=== PATIENT | female | born 1935 | race Two or more races ===

== ENCOUNTER → 2016-05-25 | Outpatient (CLI) | payer MEDICARE, OTHER ==
--- NOTE | 2016-05-25 08:57 | RAD ---
Examination: Ultrasound pelvis History: History of abdominal pain, pelvic pain, history of complete hysterectomy Comparison: None available. Technique: Transabdominal, transvaginal ultrasound of the pelvis Findings: The uterus, ovaries are not identified. Patient had a reported history of complete hysterectomy. No significant free fluid identified in the cul-de-sac. Impression: The uterus, ovaries are not identified. Patient had a reported history of complete hysterectomy. Unremarkable visualized exam.
--- NOTE | 2016-05-25 09:00 | RAD ---
Examination: Ultrasound abdomen complete History: History of abdominal pain Comparison: None available Findings: The pancreas is obscured by bowel gas. The visualized aorta, IVC appear patent. The echogenicity of the liver grossly appears unremarkable. The liver measures 16.1 cm. No evidence of gallstones identified within the gallbladder. The common bile duct measures 5.1 mm in transverse dimension. The right kidney measures 10.6 x 4.7 x 4.0 cm. The left kidney measures 10.2 x 4.7 x 5.0 cm. The spleen measures 8 cm in length. Impression: Unremarkable visualized exam.
== END | disposition home or self-care (01) ==
LOC: US 07:08
PROVIDERS: ATTEND Family Medicine
DX: R10.9 Unspecified abdominal pain (principal); Z90.710 Acquired absence of both cervix and uterus
CPT/HCPCS: 76700; 76856

== ENCOUNTER 2017-12-11 13:32 | Emergency (ER) | payer MEDICARE, OTHER ==
[~2017-12-11] VITALS: Ht 152.4 cm; Wt 52.2 kg
[2017-12-11] MEDS ORDERED: IV NORMAL SALINE 500ML BAG 500 ML IV ONE (13:45)
[2017-12-11] MEDS ORDERED: IV NORMAL SALINE 1000ML BAG 1,000 ML IV ONE (13:45)
[2017-12-11 14:05] LABS: BASO # 0.1 x10^3/uL (0.0-0.2); BASO % 1 % (0-3); EOS # 0.2 x10^3/uL (0.0-0.7); EOS % 2 % (0-3); HEMATOCRIT 35.3 % (36.0-47.0); HEMOGLOBIN 11.8 g/dL (12.0-15.5); LYMPH # 1.9 x10^3/uL (1.0-4.8); LYMPH % 19 % (24-48); MEAN CORPUSCULAR HEMOGLOBIN 28 pg (25-35); MEAN CORPUSCULAR HGB CONC 33 g/dL (31-37); MEAN CORPUSCULAR VOLUME 85 fL (79-100); MONO # 0.7 x10^3/uL (0.0-1.1); MONO % 7 % (0-9); NEUT # 7.2 x10^3uL (1.8-7.7); NEUT % 71 % (31-73); PLATELET COUNT 297 x10^3/uL (140-400); RED BLOOD COUNT 4.17 x10^6/uL (3.50-5.40); RED CELL DISTRIBUTION WIDTH 15.4 % (11.5-14.5); WHITE BLOOD COUNT 10.1 x10^3/uL (4.0-11.0)
--- NOTE | 2017-12-11 14:09 | PHYS DOC ---
Past Medical History Past Medical History: Diabetes-Type I Past Surgical History: Appendectomy Alcohol Use: None Drug Use: None Adult General Chief Complaint Chief Complaint: ALTERED MENTAL STATUS HPI HPI Patient is a 82 year old female brought in by [place] altered mental status. Patient was sitting on the porch in a chair talking to a family member on the cell phone then does not recall what happened after that was found altered by grandson difficult for him to wake her up. On recovery unit operator arrival blood pressure was 60/40. Patient denies any symptoms right now no chest pain no abdominal pain no recent illnesses no vomiting no diarrhea no headache symptoms are currently improving the blood pressures 80/40 now IN TRIAGE. Patient had a recent CT abdomen and pelvis due to some dull left flank pain that on November 2017 was without any acute findings. Review of Systems Review of Systems Constitutional: Denies fever or chills [] Eyes: Denies change in visual acuity, redness, or eye pain [] HENT: Denies nasal congestion or sore throat [] Respiratory: Denies cough or shortness of breath [] Has had palpitations in the past but none recently GI: Denies abdominal pain, nausea, vomiting, bloody stools or diarrhea [] : Denies dysuria or hematuria [] Integument: Denies rash or skin lesions [] Neurologic: Denies headache, focal weakness or sensory changes [] Endocrine: Denies polyuria or polydipsia [] All other systems were reviewed and found to be within normal limits, except as documented in this note. Current Medications Current Medications Current Medications Medications (Trade) Dose Ordered Sig/Spring Start Time Stop Time Status Last Admin Dose Admin Magnesium Sulfate/ Dextrose 100 ml @ 100 mls/hr 1X ONCE 12/11/17 14:45 12/11/17 14:45 DC Sodium Chloride 500 ml @ 500 mls/hr 1X ONCE 12/11/17 13:45 12/11/17 14:44 DC 12/11/17 14:05 500 MLS/HR Allergies Allergies Allergies Coded Allergies Type Severity Reaction Last Updated Verified No Known Drug Allergies 12/11/17 No Physical Exam Physical Exam Constitutional: Well developed, well nourished, no acute distress, non-toxic appearance. [] HENT: Normocephalic, atraumatic, bilateral external ears normal, oropharynx DRY , no oral exudates, nose normal. [] Eyes: PERRLA, EOMI, conjunctiva normal, no discharge. [] Neck: Normal range of motion, no tenderness, supple, no stridor. [] Cardiovascular:Heart rate regular rhythm, no murmur [] Lungs & Thorax: Bilateral breath sounds clear to auscultation [] Abdomen: Bowel sounds normal, soft, no tenderness, no masses, no pulsatile masses. [] Skin: Warm, dry, no erythema, no rash. [] Back: No tenderness, no CVA tenderness. [] Extremities: No tenderness, no cyanosis, no clubbing, ROM intact, no edema. [] Neurologic: Alert and oriented X 3, normal motor function, normal sensory function, no focal deficits noted. [] Psychologic: Affect normal, judgement normal, mood normal. [] Current Patient Data Vital Signs Vital Signs Date Time Temp Pulse Resp B/P (MAP) Pulse Ox O2 Delivery O2 Flow Rate FiO2 12/11/17 14:19 66 95 12/11/17 13:32 97.9 18 82/44 (57) Room Air 97.9 Lab Values Laboratory Tests Test 12/11/17 13:45 12/11/17 15:00 White Blood Count 10.1 x10^3/uL (4.0-11.0) Red Blood Count 4.17 x10^6/uL (3.50-5.40) Hemoglobin 11.8 g/dL (12.0-15.5) L Hematocrit 35.3 % (36.0-47.0) L Mean Corpuscular Volume 85 fL (79-100) Mean Corpuscular Hemoglobin 28 pg (25-35) Mean Corpuscular Hemoglobin Concent 33 g/dL (31-37) Red Cell Distribution Width 15.4 % (11.5-14.5) H Platelet Count 297 x10^3/uL (140-400) Neutrophils (%) (Auto) 71 % (31-73) Lymphocytes (%) (Auto) 19 % (24-48) L Monocytes (%) (Auto) 7 % (0-9) Eosinophils (%) (Auto) 2 % (0-3) Basophils (%) (Auto) 1 % (0-3) Neutrophils # (Auto) 7.2 x10^3uL (1.8-7.7) Lymphocytes # (Auto) 1.9 x10^3/uL (1.0-4.8) Monocytes # (Auto) 0.7 x10^3/uL (0.0-1.1) Eosinophils # (Auto) 0.2 x10^3/uL (0.0-0.7) Basophils # (Auto) 0.1 x10^3/uL (0.0-0.2) Prothrombin Time 13.5 SEC (11.7-14.0) Prothrombin Time INR 1.1 (0.8-1.1) Sodium Level 144 mmol/L (136-145) Potassium Level 3.9 mmol/L (3.5-5.1) Chloride Level 106 mmol/L (98-107) Carbon Dioxide Level 28 mmol/L (21-32) Anion Gap 10 (6-14) Blood Urea Nitrogen 12 mg/dL (7-20) Creatinine 1.1 mg/dL (0.6-1.0) H Estimated GFR (Cockcroft-Gault) 47.7 BUN/Creatinine Ratio 11 (6-20) Glucose Level 103 mg/dL (70-99) H Lactic Acid Level 2.2 mmol/L (0.4-2.0) H Calcium Level 10.0 mg/dL (8.5-10.1) Magnesium Level 2.1 mg/dL (1.8-2.4) Total Bilirubin 0.2 mg/dL (0.2-1.0) Aspartate Amino Transferase (AST) 12 U/L (15-37) L Alanine Aminotransferase (ALT) 17 U/L (14-59) Alkaline Phosphatase 82 U/L (46-116) Troponin I Quantitative < 0.017 ng/mL (0.000-0.055) Total Protein 7.2 g/dL (6.4-8.2) Albumin 3.3 g/dL (3.4-5.0) L Albumin/Globulin Ratio 0.8 (1.0-1.7) L Lipase 172 U/L (73-393) Ethyl Alcohol Level < 10 mg/dL (0-10) Urine Collection Type Void Urine Color Yellow Urine Clarity Clear Urine pH 7.0 Urine Specific [place] 1.010 Urine Protein 30 mg/dL (NEG-TRACE) Urine Glucose (UA) Negative mg/dL (NEG) Urine Ketones (Stick) Negative mg/dL (NEG) Urine Blood Negative (NEG) Urine Nitrite Negative (NEG) Urine Bilirubin Negative (NEG) Urine Urobilinogen Dipstick 0.2 mg/dL (0.2 mg/dL) Urine Leukocyte Esterase Small (NEG) Urine RBC Occ /HPF (0-2) Urine WBC 1-4 /HPF (0-4) Urine Squamous Epithelial Cells Mod /LPF Urine Renal Epithelial Cells Occ /LPF Urine Bacteria Moderate /HPF (0-FEW) Laboratory Tests 12/11/17 13:45 Laboratory Tests 12/11/17 13:45 EKG EKG 6 EKG shows a normal sinus rhythm rate of [address] elevation was noted QTC 485.[] Magnesium was within normal range Radiology/Procedures Radiology/Procedures [] Impressions: IMPRESSION: 1. Moderate sized hiatal hernia. 2. No acute cardiopulmonary abnormality is detected. Electronically signed by: Hieu Dietrich MD (12/11/2017 2:17 PM) [facility] DICTATED and SIGNED BY: HIEU DIETRICH MD DATE: 12/11/17 1415 Course & Med Decision Making Course & Med Decision Making Pertinent Labs and Imaging studies reviewed. (See chart for details) []82-year-old female who is presenting to the emergency room with a period of altered mental status apparently she was found slumped over in the porch sitting outside blood pressure initially was 60/40 here is 80/40 after fluid resuscitation she is up to 130/90. Urinalysis is negative for infection chest x- ray was negative troponin and EKG were negative for any signs of ischemia the magnesium was 2.1 Lactic acid mildly elevated at 2.2 and in addition the creatinine is 1.1 which is up from the baseline of 0.6 according to her primary care doctor Dr. Mccormick Most likely patient had a period of orthostasis and/or dehydration leading to vasovagal syncope. The hypotension has resolved with fluid resuscitation labs to suggest some dehydration. Arrhythmia genitals possibility however less likely as the patient was in sinus rhythm when her blood pressure was 80/40 on initial evaluation. I spoke with Dr. Mccormick patient's primary doctor who knows this patient well we talked about the options which included admission versus discharge home with close follow-up tomorrow for consideration of further evaluation. He is okay with EITHER BUT prefers close outpatient follow-up tomorrow if she is asymptomatic with ambulation in the emergency room as dehydration which is now treated with fluid seems to be the most likely diagnosis. patient and family agreeable. Patient will go to daughter's house for close monitoring tonight and was advised on encouraging oral hydration and follow up with primary care doctor tomorrow. Dragon Disclaimer Dragon Disclaimer This electronic medical record was generated, in whole or in part, using a voice recognition dictation system. Departure Departure Impression: Primary Impression: Dehydration Disposition: HOME, SELF-CARE Condition: STABLE Referrals: MARIELA MCCORMICK MD (PCP) MARK GUZMAN MD Dec 11, 2017 14:09
[2017-12-11 14:13] LABS: CREATININE 1.1 mg/dL (0.6-1.0); GFR 47.7; POTASSIUM 3.9 mmol/L (3.5-5.1)
--- NOTE | 2017-12-11 14:16 | EKG ---
[facility] [address] [place] [address] Test Date: 2017-12-11 Test Time: 14:05:45 Pat Name: MONIE LOPEZ Department: Room: Gender: F Energy Administrator: : [id number] Requested By: MARK GUZMAN Order Number: [id number] Reading MD: Abner Murray MD Measurements Intervals [place] Rate: 63 P: 56 RI: 208 QRS: -1 QRSD: 70 T: 32 QT: 470 QTc: 485 Interpretive Statements SINUS RHYTHM Electronically Signed On 12-16-2017 10:48:46 CDT by Abner Murray MD
[2017-12-11 14:17] LABS: PROTHROMBIN TIME PATIENT 13.5 SEC (11.7-14.0)
[2017-12-11 14:19] VITALS: BP 114/55
[2017-12-11 14:20] LABS: ALBUMIN 3.3 g/dL (3.4-5.0); ALBUMIN/GLOBULIN RATIO 0.8 (1.0-1.7); TOTAL BILIRUBIN 0.2 mg/dL (0.2-1.0); TOTAL PROTEIN 7.2 g/dL (6.4-8.2)
--- NOTE | 2017-12-11 14:21 | RAD ---
Portable chest, 12/11/2017: HISTORY: Weakness, low blood pressure The heart is at the upper limits of normal in size. There is a moderate sized hiatal hernia. There is calcific plaquing of the thoracic aorta. The pulmonary vascularity is normal. No pulmonary infiltrate is seen. There is no evidence of pleural fluid. IMPRESSION: 1. Moderate sized hiatal hernia. 2. No acute cardiopulmonary abnormality is detected. Electronically signed by: Hieu Dietrich MD (12/11/2017 2:17 PM) [facility]
[2017-12-11] MEDS ORDERED: MAGNESIUM SULFATE 1GM 100 ML IV ONE (14:45)
[2017-12-11 15:11] LABS: BILIRUBIN,URINE NEGATIVE (NEG); CLARITY,URINE CLEAR; COLOR,URINE YELLOW; NITRITE,URINE NEGATIVE (NEG); PROTEIN,URINE 30 mg/dL (NEG-TRACE); UROBILINOGEN,URINE 0.2 mg/dL (0.2 mg/dL)
[2017-12-11 15:20] LABS: RBC,URINE OCC /HPF (0-2)
[2017-12-11 15:21] LABS: BACTERIA,URINE MODERATE /HPF (0-FEW); SQUAMOUS EPITHELIAL CELL,UR MOD /LPF
== END 2017-12-11 16:22 | disposition home or self-care (01) ==
LOC: ER 13:32
DX: E86.0 Dehydration (principal); K44.9 Diaphragmatic hernia without obstruction or gangrene; E10.9 Type 1 diabetes mellitus without complications
CPT/HCPCS: 36415; 71045; 80053; 81001; 83605; 83690; 83735; 84484; 85025; 85610; 87040; 87086; 93005; 96360; 99285; G0480; J7030; J7040

== ENCOUNTER → 2020-07-21 | Outpatient (CLI) | payer MEDICAID ==
--- NOTE | 2020-07-21 15:22 | KCIC ---
3 view study of the left knee Clinical indications: Chronic left knee pain. Hurts to bear weight. FINDINGS: No acute fracture or dislocation or lytic process is seen. There is mild joint space narrow ing of the medial and lateral tibiofemoral joint compartment. There is minimal degenerative spurring of the medial tibiofemoral joint compartment. Minimal degenerative spurring of patellofemoral joint c ompartment is seen. IMPRESSION: No acute osseous abnormality. 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 Electronically signed by: Kraig Rodriguez MD (07/21/2020 3:20 PM) [id number]
== END ==
LOC: KCIC 13:39
PROVIDERS: ATTEND Family Medicine
DX: M17.12 Unilateral primary osteoarthritis, left knee (principal)
CPT/HCPCS: 73562